=== PATIENT | female | born 1965 | race Caucasian/White ===

== ENCOUNTER → 2020-06-06 09:46 | Outpatient (BNVA) | payer MEDICAID, SELFPAY | PROVIDERS: PCP Family Medicine; Referring Provider Family Medicine; Visit Provider Nurse Practitioner Family | DX: M54.31 Sciatica, right side (principal); M47.816 Spondylosis without myelopathy or radiculopathy, lumbar region; M16.11 Unilateral primary osteoarthritis, right hip | CPT/HCPCS: 99202 ==

== ENCOUNTER 2023-07-09 15:12 | Emergency (ER) | payer SELFPAY ==
--- NOTE | ~2023-07-09 | XR_ITS ---
EXAMINATION: XR CHEST CLINICAL INFORMATION: Chest tightness and cough. COMPARISON: None available. TECHNIQUE: 2 views of the chest were obtained. FINDINGS: The lungs are hyperinflated with patchy atelectatic changes right middle lobe. The heart size and pulmonary vascularity is normal. There is no pleural effusion or pneumothorax. Heart size and pulmonary vascularity is normal. No gross bony abnormality seen. XR/XR chest 2V IMPRESSION: Hyperinflated lungs with patchy atelectatic changes right middle lobe.
--- NOTE | 2023-07-09 15:15 | ECG_ITS ---
Test Reason : CP Blood Pressure : / mmHG Vent. Rate : 068 BPM Atrial Rate : 068 BPM P-R Int : 120 ms QRS Dur : 082 ms QT Int : 418 ms P-R-T Axes : 034 087 038 degrees QTc Int : 444 ms Normal sinus rhythm Normal ECG No previous ECGs available Referred By: Belia Laurent Electronically Signed By:MILENA STEPHEN
--- NOTE | 2023-07-09 16:15 | ED.GENADULT ---
HPI - General Adult General Chief complaint: General Medical Stated complaint: chest,back pain sob Time Seen by Provider: 07/09/23 17:19 Source: patient, family, RN notes reviewed and old records reviewed History of Present Illness HPI narrative: 57-year-old female with a past medical history of substance abuse, diabetes, hepatitis-C, HTN, HIV noncompliant on medications x months, unknown viral load/CD4 count, presenting to the ED complaining of productive cough of green sputum, SOB, chest discomfort with cough, nausea/vomiting, fatigue x 3 weeks. Also reports acute on chronic low back pain/sciatica with radiation down bilateral lower extremities. Denies fever/chills, sick contacts, melena, incontinence/retention, injury/fall or trauma, numbness/tingling or weakness Related Data Home Medications Medication Instructions Recorded Confirmed aspirin 81 mg tablet,delayed 81 mg PO DAILY 06/06/20 06/06/20 release (Adult Low Dose Aspirin) atorvastatin 20 mg tablet 20 mg PO DAILY 06/06/20 06/06/20 buprenorphine 8 mg-naloxone 2 mg 2 film buccal DAILY 06/06/20 06/06/20 sublingual film (Suboxone) cyclobenzaprine 5 mg tablet 5 mg PO TID PRN 06/06/20 06/06/20 dolutegravir 50 mg tablet (Tivicay) 50 mg PO DAILY 06/06/20 06/06/20 emtricitabine 200 mg-tenofovir 1 tab PO DAILY 06/06/20 06/06/20 alafenamide fumarate 25 mg tablet (Descovy) glipizide 5 mg tablet 5 mg PO DAILY 06/06/20 06/06/20 hydrochlorothiazide 25 mg tablet 25 mg PO DAILY 06/06/20 06/06/20 meloxicam 7.5 mg tablet 7.5 mg PO DAILY 06/06/20 06/06/20 metoprolol succinate 100 mg 100 mg PO DAILY 06/06/20 06/06/20 tablet,extended release 24 hr mirtazapine 15 mg tablet 15 mg PO BEDTIME 06/06/20 06/06/20 Previous Rx's Medication Instructions Recorded tizanidine 2 mg tablet 2 mg PO TID PRN muscle spasticity 06/06/20 #90 tabs cefuroxime axetil 500 mg tablet 500 mg PO BID 7 days #14 tabs 07/09/23 cyclobenzaprine 5 mg tablet 5 mg PO Q8H PRN pain (scale score 07/09/23 7-10) 5 days #14 tabs doxycycline hyclate 100 mg tablet 100 mg PO BID 7 days #14 tabs 07/09/23 lidocaine 5 % topical patch 1 patch topical DAILY PRN pain #30 07/09/23 (Lidoderm) ea naproxen 500 mg tablet 500 mg PO BID PRN pain 10 days #20 07/09/23 tabs prednisone 20 mg tablet 40 mg (2 x 20 mg) PO DAILY 5 days 07/09/23 #10 tabs Allergies Allergy/AdvReac Type Severity Reaction Status Date / Time No Known Allergies Allergy Verified 07/09/23 16:18 Review of Systems Review of Systems: Constitutional: No Fever, No Chills, + fatigue, + malaise ENT/Mouth: No Ear Pain, No Nasal Congestion, No sore throat, + Rhinorrhea, No Swallowing Difficulty Cardiovascular: + Chest Pain w/cough, + SOB Respiratory: + Cough, + Sputum, No Wheezing Gastrointestinal: + Nausea, + Vomiting, No Diarrhea, No Constipation, No Abdominal pain Genitourinary: No Dysuria, No Hematuria, No Urinary Incontinence/retention, No Urgency, No Flank Pain Musculoskeletal: No joint pain, + Myalgias, No Joint Swelling Skin: No Skin Lesions, No rash Neuro: + Weakness, No Numbness, No Paresthesias Yes all other systems are reviewed and are negative Constitutional: Constitutional: Reports as per [facility] Past Medical History Attestation statement: The following information was validated with the patient. Source: old records reviewed Social History Social History Smoked in Last 30 Days: Yes Use of substances other than those prescribed or required for medical reasons: No Advance Directives: No Advance Directives Information Provided: No Patient : No Physical Exam ED Vital Signs: Vital Signs - 24 hr 07/09/23 16:16 07/09/23 18:22 Temperature 97.5 F 97.8 F Pulse Rate 67 60 Respiratory Rate 20 18 Blood Pressure 106/44 L 110/61 Pulse Oximetry 93 97 Oxygen Delivery Method Room Air Room Air BMI result Body Mass Index 16.9 Const General: cooperative, healthy appearing and no acute distress Orientation/consciousness: patient oriented x3 Limitations: no limitations HENMT Head: Yes normal to inspection and Yes atraumatic Ears: hearing grossly normal bilaterally General nose exam: Normal external nose present Face and sinus: Yes normal facial exam Eyes General: appearance normal, both eyes and all related structures EOM: EOMs intact bilaterally Neck Neck: Yes normal visual inspection and Yes no meningeal signs Resp Effort & Inspection: normal respiratory effort and no respiratory distress Auscultation: clear to auscultation bilaterally, no crackles and no wheezes Cardio Rate: regular rate Heart sounds: S1 normal heart sound present and S2 normal heart sound present GI Inspection: Yes normal to inspection Palpation (GI): Soft to palpation, nontender, no guarding and not rigid Rectal Exam - Female: External hemorrhoid(s) present (No active bleeding or thrombosis) Back/Spine/Pelvis Other: No midline cervical/thoracic/lumbar spinous tenderness/step-off or deformity. Bilateral MSK lumbar tenderness to palpation Skin Rashes: no rashes Wounds: no wounds Neuro Other: Strength intact throughout. No saddle anesthesia. Sensation intact to light touch. Neurovascular intact distally General: patient oriented x3, gait normal, tone normal, moves all extremities, no meningeal signs, no focal motor deficits and CN's II-XI intact bilaterally Cranial nerves: Yes CN's II-XII intact bilaterally Gait exam (Neuro): Normal gait present Motor exam (neuro): 5/5 motor strength present throughout Extrem General: Yes normal to inspection Course Course Course Narrative: RME:?57 yo female hx of DM, HTN, here w/ cough w/ watery green sputum, sob, chest tightness x2 weeks. No sick contacts. No hx of asthma. Additionally endorses low back pain. Low back pain feels like her sciatica. No new fall/injury. lungs cta b/l serology, basic labs, cxr ordered. Full HPI, ROS and PE to be performed by the primary ED provider. -patient notably anemic, denies known history of anemia. Does report 1 episode of bloody stool x1 episode about 3 weeks ago, denies anything at present, does report history of hemorrhoids. Denies melena. > will obtain occult stool -labs otherwise reassuring. COVID/flu/RSV negative XR chest 2V IMPRESSION: Hyperinflated lungs with patchy atelectatic changes right middle lobe. Case d/w Dr. Delong, will treat with outpatient p.o. Ceftin and doxycycline. Discussed with patient at length importance of following up with Infectious Disease and compliance with antiviral medication >Results discussed with patient including worrisome signs and symptoms and strict return precautions, and when to return to the emergency department. They verbalized understanding and feel safe for discharge at this time. Medical Decision Making Medical Decision Making [facility] Narrative: 57-year-old female with a past medical history of substance abuse, diabetes, hepatitis-C, HTN, HIV noncompliant on medications x months, unknown viral load/CD4 count, presenting to the ED complaining of productive cough of green sputum, SOB, chest discomfort with cough, nausea/vomiting, fatigue x 3 weeks. On exam vital signs stable, NAD, nontoxic appearing, lungs CTA, no midline spinous tenderness. No red flag symptoms. Abdomen soft/nontender. Concern for viral syndrome vs metabolic/infectious etiologies. Rule out pneumonia versus bronchitis. Low suspicion for ACS/PE. Concern for MSK pain/strain and sciatica versus herniated disc. Low suspicion for cauda equina/cord compression or epidural abscess at this time. Plan: EKG, Labs, viral testing, CXR ordered in triage Please refer to course for remaining clinical decision making, interpretation of labs/imaging results, and discussions with consultants and/or family members. Differential Diagnosis Differential Diagnoses: The differential diagnosis associated with the presentation includes As above Admission/Observation Consideration of admission/observation: Escalation of care including admission/observation considered Lab Data [facility] Lab Attestation statement: I reviewed the patient's lab results. 07/09/23 17:08 07/09/23 17:08 Labs: Lab Results 07/09/23 07/09/23 Range/Units 17:08 17:56 WBC 7.3 (4.8-10.8) X10*3/uL RBC 3.40 L (4.20-5.50) X10*6/uL Hgb 10.0 L (12.0-16.0) g/dl Hct 30.6 L (37.0-47.0) % MCV 90.0 (80.0-98.0) fL MCH 29.4 (27.0-33.0) pg MCHC 32.7 (31.0-35.0) g/dl RDW 14.1 (11.0-16.0) % Plt Count 367 (160-400) X10*3/uL MPV 9.7 (9.4-12.3) fL Immature Gran % (Auto) 0.3 (0.0-0.4) % Neut % (Auto) 77.5 H (45-73) % Lymph % (Auto) 15.1 L (20-40) % [place] % (Auto) 5.9 (2-11) % Eos % (Auto) 1.1 (0-4) % Baso % (Auto) 0.1 (0-2) % Lymph # (Auto) 1.1 L (1.2-4.9) X10*3/uL [place] # (Auto) 0.4 (0.1-1.2) X10*3/uL Eos # (Auto) 0.1 (0.0-0.4) X10*3/uL Baso # (Auto) 0.0 (0.0-0.2) X10*3/uL Abs Immat Gran (auto) 0.02 (0.00-0.03) X10*3/uL Absolute Neuts (auto) 5.7 (2.0-8.3) x10*3/uL Absolute Nucleated RBC 0.000 (0.0-0.012) X10*3/uL Nucleated RBC % (auto) 0.0 (0.0-0.2) /100WBC Sodium 141 (135-145) mmol/L Potassium 3.4 (3.3-5.1) mmol/L Chloride 108 (96-108) mmol/L Carbon Dioxide 23 (22-29) mmol/L Anion Gap 13 (12-20) BUN 16 (9-16) mg/dL Creatinine 0.94 (0.5-1.4) mg/dL Estim Creat Clear Calc 42.6 Estimated GFR > 60 Random Glucose 168 H (60-115) mg/dL Calcium 9.8 (8.4-10.2) mg/dL Magnesium 1.7 (1.6-2.6) mg/dL Total Bilirubin 0.2 (0.0-1.0) mg/dL Direct Bilirubin < 0.2 (0.0-0.5) mg/dL AST 17 (5-31) U/L ALT 9 (0-31) U/L Alkaline Phosphatase 79 (39-117) U/L Total Protein 7.5 (6.5-8.0) g/dL Albumin 3.2 L (3.5-5.0) g/dL Lipase 11 (8-78) U/L Stool Occult Blood NEGATIVE (NEGATIVE) Influenza Type A (PCR) NEGATIVE (Negative) Influenza Type B (PCR) NEGATIVE (Negative) RSV RNA Qual (PCR) NEGATIVE (Negative) SARS-CoV-2 RNA (RT-PCR) NEGATIVE (Negative) Independent Interpretation I performed an independent interpretation of an: EKG and Plain X-Ray Radiology Impression Discussion of test interpretation with radiology: I have reviewed the radiologist's reading. External Record Review External record reviewed: Inpatient record, Office record, Outpatient record, Prior outpatient labs, Prior outpatient radiology, Primary care record and Outside ED record Tests considered The following testing was considered but not selected: As above Prescription Management I considered prescription management with: Pain Medication and Other Chronic Conditions Patient?s care impacted by: Other (HIV, diabetes) Discharge Plan Discharge Clinical Impression: Acute viral syndrome, Anemia, Bronchitis Patient Disposition: Home, Self-Care Instructions: Acute Bronchitis (ED), Viral Syndrome (ED), Anemia (ED) Additional Instructions: Ceftin and doxycycline or antibiotics basic as prescribed In addition take prednisone It is very important for you to follow-up with your doctor and Infectious Disease, you need to be taking antiviral medications for her HIV You also have anemia noted today, please of both follow-up with her doctor if he develops any bloody or black stools or lightheadedness/dizziness return to the ED The symptoms persist or worsen return to the ED Flexeril is a muscle relaxer, take at night as it makes you drowsy, do not drive, drink alcohol, or operate machinery while taking it Naproxen as an anti-inflammatory / pain medication, take with food Lidoderm patches are numbing patches, apply to painful area If symptoms persist or worsen, pain becomes unbearable, you developed urinary retention or incontinence, or weakness return to the ED Prescriptions: New cefuroxime axetil 500 mg tablet 500 mg PO BID 7 Days Qty: 14 0RF prednisone 20 mg tablet 40 mg PO DAILY 5 Days Qty: 10 0RF doxycycline hyclate 100 mg tablet 100 mg PO BID 7 Days Qty: 14 0RF lidocaine [Lidoderm] 5 % adhesive patch,medicated 1 patch topical DAILY MDD remove after 12 hours PRN (Reason: pain) Qty: 30 0RF Rx Instructions: leave on most painful area for up to 12 hrs naproxen 500 mg tablet 500 mg PO BID PRN (Reason: pain) 10 Days Qty: 20 0RF cyclobenzaprine 5 mg tablet 5 mg PO Q8H PRN (Reason: pain (scale score 7-10)) 5 Days Qty: 14 0RF No Action Tivicay 50 mg tablet 50 mg PO DAILY Descovy 200-25 mg tablet 1 tab PO DAILY atorvastatin 20 mg tablet 20 mg PO DAILY aspirin [Adult Low Dose Aspirin] 81 mg tablet,delayed release (DR/EC) 81 mg PO DAILY metoprolol succinate 100 mg tablet extended release 24 hr 100 mg PO DAILY hydrochlorothiazide 25 mg tablet 25 mg PO DAILY glipizide 5 mg tablet 5 mg PO DAILY buprenorphine-naloxone [Suboxone] 8-2 mg film 2 film buccal DAILY Rx Instructions: place 1 film on inside of (each) cheek mirtazapine 15 mg tablet 15 mg PO BEDTIME meloxicam 7.5 mg tablet 7.5 mg PO DAILY cyclobenzaprine 5 mg tablet 5 mg PO TID PRN tizanidine 2 mg tablet 2 mg PO TID PRN (Reason: muscle spasticity) Qty: 90 0RF Rx Instructions: be sure to discontinue cyclobenzaprine prior to start of tizanidine Referrals: JOLIE SHAFFER MD [Physician] - Physician,None [Primary Care Provider] -
[2023-07-09 16:16] VITALS: BP 106/44; PULSE 67; RESP 20; TEMP 36.4; O2SAT 93; BMI 16.9
[2023-07-09 17:12] LABS: MANUAL DIFF FLAG NO
[2023-07-09 17:13] LABS: Basophils Percent Auto 0.1 % (0-2); Eosinophils Absolute Auto 0.1 X10*3/uL (0.0-0.4); Eosinophils Percent Auto 1.1 % (0-4); Hematocrit 30.6 % (37.0-47.0); Imm Gran Abs Auto 0.02 X10*3/uL (0.00-0.03); Imm Gran Pct Auto 0.3 % (0.0-0.4); Lymphocytes Absolute Auto 1.1 X10*3/uL (1.2-4.9); Lymphocytes Percent Auto 15.1 % (20-40); Mean Corpuscular HGB Conc 32.7 g/dl (31.0-35.0); Mean Corpuscular Hemoglobin 29.4 pg (27.0-33.0); Mean Platelet Volume 9.7 fL (9.4-12.3); Monocytes Absolute Auto 0.4 X10*3/uL (0.1-1.2); Monocytes Percent Auto 5.9 % (2-11); Neutrophils Absolute Auto 5.7 x10*3/uL (2.0-8.3); Neutrophils Percent Auto 77.5 % (45-73); Platelet Count 367 X10*3/uL (160-400); Red Cell Distribution Width 14.1 % (11.0-16.0); White Blood Count 7.3 X10*3/uL (4.8-10.8)
[2023-07-09 17:25] LABS: Anion Gap 13 (12-20); Blood Urea Nitrogen 16 mg/dL (9-16); Calcium 9.8 mg/dL (8.4-10.2); Carbon Dioxide 23 mmol/L (22-29); Chloride 108 mmol/L (96-108); Creatinine Clr Calc Pharmacy 42.6; Estimated Glomerular Filt Rate > 60; Glucose Random 168 mg/dL (60-115); Potassium 3.4 mmol/L (3.3-5.1); Sodium 141 mmol/L (135-145)
[2023-07-09 17:45] LABS: Alanine Aminotransferase 9 U/L (0-31); Albumin Level 3.2 g/dL (3.5-5.0); Alkaline Phosphatase 79 U/L (39-117); Aspartate Amino Transferase 17 U/L (5-31); Bilirubin Direct < 0.2 mg/dL (0.0-0.5); Bilirubin Total 0.2 mg/dL (0.0-1.0); Lipase 11 U/L (8-78); Magnesium 1.7 mg/dL (1.6-2.6); Total Protein 7.5 g/dL (6.5-8.0)
[2023-07-09 17:51] LABS: Influenza A PCR NEGATIVE (Negative); Influenza B PCR NEGATIVE (Negative); Resp Syncy Virus RNA Qual PCR NEGATIVE (Negative); SARS COV2 PCR INHOUSE NEGATIVE (Negative)
--- NOTE | 2023-07-09 17:59 | PC.NURSE ---
OBSX1 obtained/sent to lab. this RN chaperoned ROSARIO Chang. pt continues to rest in no apparent distress.
[2023-07-09 18:03] LABS: OBS Int Ctl Valid YES; OBS1 NEGATIVE (NEGATIVE)
[2023-07-09 18:22] VITALS: BP 110/61; PULSE 60; RESP 18; TEMP 36.6; O2SAT 97
== END 2023-07-09 18:57 | disposition home or self-care (01) ==
PROVIDERS: Physician Assistant; Physician Assistant Medical; Emergency Provider Internal Medicine
DX: J20.8 Acute bronchitis due to other specified organisms (principal); R07.89 Other chest pain; M54.50 Low back pain, unspecified; R06.02 Shortness of breath; B34.9 Viral infection, unspecified; D64.9 Anemia, unspecified; Z20.822 Contact with and (suspected) exposure to COVID-19; Z20.828 Contact with and (suspected) exposure to other viral communicable diseases; Z79.899 Other long term (current) drug therapy
CPT/HCPCS: 0241U; 71046; 80048; 80076; 82272; 83690; 83735; 85025; 93005; 99283; 99284

== ENCOUNTER → 2023-07-09 15:15 | Outpatient (BNV) | payer SELFPAY | PROVIDERS: Emergency Provider Internal Medicine; Visit Provider Internal Medicine | DX: R07.9 Chest pain, unspecified (principal) | CPT/HCPCS: 93010 ==